=== PATIENT | male | born 1990 | race African-American/Black ===

== ENCOUNTER 2016-10-01 18:42 | Emergency (ER) | payer MEDICAID, OTHER ==
[~2016-10-01] VITALS: Ht 185.4 cm; Wt 88.9 kg
[2016-10-01] MEDS ORDERED: cefTRIAXone SOD 1,000 MG VL IM ONE (21:45)
[2016-10-01 22:00] VITALS: BP 140/97
== END 2016-10-01 22:26 | disposition home or self-care (01) ==
LOC: ER 18:45
DX: J20.9 Acute bronchitis, unspecified (principal); J03.90 Acute tonsillitis, unspecified; Z88.6 Allergy status to analgesic agent; F17.210 Nicotine dependence, cigarettes, uncomplicated
CPT/HCPCS: 71020; 96372; 99284; J0696

== ENCOUNTER 2016-10-20 18:46 | Emergency (ER) | payer MEDICAID ==
[2016-10-20 20:15] LABS: Basophils # (auto) 0 uL; Basophils % (auto) 0.4 % (0.0-2.0); Eosinophils # (auto) 0.4 uL; Eosinophils % (auto) 7.1 % (0.0-7.0); Hematocrit 48.2 % (41.0-53.0); Hemoglobin 16.1 g/dL (13.5-17.5); Lymphocytes # (auto) 0.7 uL; Lymphocytes % (auto) 12.1 % (10.0-50.0); Mean Corpuscular Hemoglobin 29.5 pg (28.0-32.0); Mean Corpuscular Hgb Conc. 33.5 g/dL (32.0-36.0); Mean Corpuscular Volume 88.1 fL (80.0-100.0); Mean Platelet Volume 8.3 fL (7.4-10.4); Monocytes # (auto) 0.9 uL; Neutrophils # (auto) 3.5 uL; Neutrophils % (auto) 64.4 % (37.0-80.0); Platelet Count (auto) 208 10^3/uL (140-450); Red Cell Distribution Width 13.4 % (11.6-16.0); White Blood Cell 5.4 10^3/uL (4.4-10.8)
[2016-10-20 20:24] LABS: Urine Bilirubin Negative (Negative); Urine Blood Negative /uL (Negative); Urine Color Yellow (Yellow); Urine Glucose Normal (Normal); Urine Mucus FEW (None Seen); Urine Nitrite Negative (Negative); Urine RBC 2 /hpf (0 - 3)
[2016-10-20 20:25] LABS: Urine Ketone 1+ (Negative)
[2016-10-20 20:37] LABS: Albumin 3.6 g/dL (3.4-5.0); BUN/Creatinine Ratio 8.3; Bilirubin, Total 0.4 mg/dL (0.2-1.0); Calcium 8.1 mg/dL (8.5-10.1); Potassium 3.8 mmol/L (3.5-5.1); Total Protein 7.5 g/dL (6.4-8.2)
[2016-10-20 21:33] VITALS: BP 122/71
== END 2016-10-20 22:00 | disposition home or self-care (01) ==
LOC: ER 18:49
DX: J06.9 Acute upper respiratory infection, unspecified (principal); J45.909 Unspecified asthma, uncomplicated; E86.0 Dehydration; F17.210 Nicotine dependence, cigarettes, uncomplicated
CPT/HCPCS: 36415; 71020; 80053; 81001; 83735; 85025

== ENCOUNTER 2017-01-22 18:05 | Emergency (ER) | payer MEDICAID ==
[~2017-01-22] VITALS: Ht 182.9 cm; Wt 95.7 kg
[2017-01-22 20:31] VITALS: BP 118/76
== END 2017-01-22 21:55 | disposition home or self-care (01) ==
LOC: ER 18:10
DX: H60.93 Unspecified otitis externa, bilateral (principal); F17.210 Nicotine dependence, cigarettes, uncomplicated; J45.909 Unspecified asthma, uncomplicated; Z76.0 Encounter for issue of repeat prescription; Z88.8 Allergy status to other drugs, medicaments and biological substances

== ENCOUNTER 2017-09-22 06:14 | Emergency (ER) | payer MEDICAID ==
[~2017-09-22] VITALS: Ht 185.4 cm; Wt 95.3 kg
[2017-09-22 07:19] VITALS: BP 138/72
== END 2017-09-22 07:20 | disposition home or self-care (01) ==
LOC: ER 06:15
DX: J45.909 Unspecified asthma, uncomplicated (principal); F17.210 Nicotine dependence, cigarettes, uncomplicated; Z76.0 Encounter for issue of repeat prescription; Z88.8 Allergy status to other drugs, medicaments and biological substances; Z91.018 Allergy to other foods

== ENCOUNTER 2019-07-09 17:43 | Emergency (ER) | payer MEDICAID ==
[~2019-07-09] VITALS: Ht 185.4 cm; Wt 100.7 kg
[2019-07-09 18:00] VITALS: BP 124/79
[2019-07-09 21:49] LABS: Basophils # (auto) 0.1 uL; Basophils % (auto) 1.1 % (0.0-2.0); Eosinophils # (auto) 0.3 uL; Eosinophils % (auto) 4.5 % (0.0-7.0); Hematocrit 49.9 % (41.0-53.0); Hemoglobin 16.9 g/dL (13.5-17.5); Lymphocytes # (auto) 2.2 uL; Mean Corpuscular Hemoglobin 30.2 pg (28.0-32.0); Mean Corpuscular Hgb Conc. 33.8 g/dL (32.0-36.0); Mean Corpuscular Volume 89.1 fL (80.0-100.0); Monocytes # (auto) 0.8 uL; Monocytes % (auto) 13.5 % (0.0-12.0); Neutrophils # (auto) 2.5 uL; Neutrophils % (auto) 42.9 % (37.0-80.0); Nucleated Red Blood Cells % 0.1 %; Platelet Count (auto) 195 10^3/uL (140-450); Red Cell Distribution Width 13.5 % (11.8-14.3); White Blood Cell 5.8 10^3/uL (4.4-10.8)
[2019-07-09 22:04] LABS: Albumin 3.9 g/dL (3.4-5.0); Anion Gap 6 (5-15); Blood Urea Nitrogen 15 mg/dL (7-18); Calcium 8.7 mg/dL (8.5-10.1); Carbon Dioxide 29 mmol/L (21-32); Chloride 104 mmol/L (98-107); Glucose 98 mg/dL (74-106); Potassium 4.3 mmol/L (3.5-5.1); Sodium 139 mmol/L (136-145)
[2019-07-09 22:10] LABS: Alanine Aminotransferase 78 U/L (16-61); Alkaline Phosphatase 96 U/L (45-117); Aspartate Aminotransferase 36 U/L (15-37); Bilirubin, Total 0.4 mg/dL (0.2-1.0); CRP High Sensitivity 0.42 mg/dL (< 0.3); GFR African American 96 mL/min; GFR Non-African American 79 mL/min; Total Protein 7.7 g/dL (6.4-8.2)
[2019-07-09] MEDS ORDERED: IOHEXOL 350 MG/ML 100ML IJ ONE (22:51)
[2019-07-10] MEDS ORDERED: methylPREDNISolone SOD SUCC 125 MG/2 ML VL IM ONE (00:15)
[2019-07-10] MEDS ORDERED: ALBUTEROL SULF 2.5 MG/0.5ML(0.5%) NEB SOLN NEB ONE (00:30)
[2019-07-10] MEDS ORDERED: IPRATROPIUM BROM 0.5 MG/2.5ML INH SOL NEB ONE (00:30)
[2019-07-10] MEDS ORDERED: methylPREDNISolone SOD SUCC 125 MG/2 ML VL IV ONE (00:30)
== END 2019-07-10 00:53 | disposition home or self-care (01) ==
LOC: ER 17:43
DX: M94.0 Chondrocostal junction syndrome [Tietze] (principal); R09.1 Pleurisy; J45.909 Unspecified asthma, uncomplicated; F17.210 Nicotine dependence, cigarettes, uncomplicated
CPT/HCPCS: 36415; 71046; 71275; 80053; 82553; 84484; 85025; 85379; 85652; 86141; 93005; 94640; 96374; 99284; J7611; J7644; Q9967